=== PATIENT | female | born 2000 | race Caucasian/White ===

== ENCOUNTER → 2020-10-17 | Day surgery (SDC) | payer BC ==
[~2020-10-17] VITALS: Ht 170.2 cm; Wt 104.3 kg
[~2020-10-17] MED LIST: IBUPROFEN 800800 M1 PO; IBUPROFEN200 MG PO; ZOLOFT25 MG PO
[2020-10-17 11:05] VITALS: BP 143/78
[2020-10-17 14:50] VITALS: BP 143/78
--- NOTE | 2020-10-17 16:04 | O ---
[facility] [place] [address] OPERATIVE REPORT Name: AILYN STEIN Room #: REG [facility].#: [id number] Admission: 10/17/20 Attend Phys: Mauro Gonsalez MD Discharge: Date of : 89 Report #: [id number] THIS REPORT FOR: cc: Josi Urban MD,Braxton Gonsalez,Mauro Huertas MD ~ DATE OF SERVICE: 10/17/2020 SERVICE: Orthopedics. FACILITY: [facility]. SURGEON: Mauro Gonsalez MD [employer] OPERATOR: Michelle Araujo NP PREOPERATIVE DIAGNOSES: 1. Left knee pain. 2. Left knee plica syndrome. POSTOPERATIVE DIAGNOSES: 1. Left knee pain. 2. Left knee plica syndrome. 3. Left knee synovitis. 4. Left knee, small inner rim lateral meniscus tear. PROCEDURES: 1. Left knee arthroscopy with plica excision and synovectomy. 2. Left knee partial lateral meniscectomy. COMPLICATIONS: None. DRAINS: None. SPECIMENS: None. ANESTHESIA: General. FINDINGS: 1. Two parallel bands medial plica extending over the medial femoral condyle where there was superficial fissuring and a thin flap tear of the articular cartilage at the medial femoral condyle anterior corner. This was treated with plica excision and limited chondroplasty. This was a superficial chondral lesion and there were no unstable segments otherwise. 2. Synovitis along the PCL and extending back to the posterior horn of the medial meniscus, treated with partial synovectomy. [facility] [address] [place] [address] OPERATIVE REPORT Name: AILYN STEIN Room #: REG [facility]#: [id number] Admission: 10/17/20 Attend Phys: Mauro Gonsalez MD Discharge: Date of : [birth year] Report #: [id number] 3. Intact medial compartment. ACL and PCL otherwise. 4. A small inner rim lateral meniscus tear, treated with inner rim partial lateral meniscectomy. Approximately 5% meniscal volume resected. HISTORY: The patient is a 20-year-old female who is very active and has persistent and progressive left knee pain that had failed rest, activity modifications, physical therapy, multiple injections, and modalities. She had been seen at another facility and presented with a diagnosis of suspected medial plica syndrome. I evaluated her and agreed with that impression and since she had failed conservative measures, she wished to move forward with a definitive surgical treatment. Risks, benefits, alternatives, and indication of surgery discussed with her in detail. Risks include but not limited to pain, bleeding, infection, injury to nerves or blood vessels, persistent pain despite surgical intervention, progression of preexisting chondral injury, stiffness, need for further surgery as well as complications related to anesthesia. Despite the risks, she wished to proceed. PROCEDURE IN DETAIL: After left lower extremity was correctly identified in the preoperative holding area as the operative extremity, the patient was taken to the operating room where general anesthesia was induced without complications. She was padded appropriately. Prophylactic antibiotics were administered in appropriate time. Tourniquet was applied. The left leg was then prepped and draped in standard sterile fashion. Timeout procedure was performed. Esmarch was utilized. Tourniquet inflated to 300 mmHg. Standard anterolateral viewing portal was established followed by anteromedial working portal. Patellofemoral joint was normal with some mild lateral patellar tracking. There were no loose bodies. The medial aspect of the joint was then evaluated and the 2 parallel running plica bands were visualized. I placed the anteromedial portal and then cut the more midline portion of the plica with a biter and then resected the remnant with a shaver. These corresponded to an area where there was a direct abrasion chondromalacia on the anteromedial corner of the medial femoral condyle. There was a thin flap of articular cartilage that appeared to be the result of these plicas. This was treated with a chondroplasty. The remaining portion of the trochlea and anterior aspect of the femur was normal. The scope was placed in the medial compartment, the medial meniscus was normal. There was a thickened and hypertrophic synovium extending over the PCL and then straight back towards the medial meniscal horn. This appeared to be space occupying and could be a source of pain as well, so we used a shaver to perform a synovectomy from the anterior aspect of the PCL along the notch and then through the notch back to the posterior horn and then resected the synovitis here as well. There was no posterior horn medial meniscus tear. The scope was then placed in the lateral compartment and articular cartilage was normal. There was a very small flap tear of the inner rim of the lateral meniscus. I felt that there is a possibility that this could then propagate [address] [address] OPERATIVE REPORT Name: AILYN STEIN Room #: REG [facility]#: [id number] Admission: 10/17/20 Attend Phys: Mauro Gonsalez MD Discharge: Date of : 98 Report #: [id number] into a larger flap tear, so a biter was used to perform a very minimal inner rim resection and then the shaver was used to complete the contouring 5% or less of the meniscal volume was resected. The synovectomy was then completed, the arthroscopic effusion was drained. Instruments were removed. Portal sites were closed. Sterile dressing was applied. The patient was awakened from anesthesia and taken to recovery room in stable condition. No complications. All counts were correct. <ELECTRONICALLY SIGNED> By: Mauro Gonsalez MD 10/17/20 1604 [id number] Mauro Gonsalez MD /nt
== END | disposition home or self-care (01) ==
LOC: OR 07:23
PROVIDERS: ATTEND Orthopaedic Surgery Sports Medicine
DX: M25.562 Pain in left knee (principal); S83.282A Other tear of lateral meniscus, current injury, left knee, initial encounter; M67.52 Plica syndrome, left knee; M65.862 Other synovitis and tenosynovitis, left lower leg; F41.9 Anxiety disorder, unspecified; Z20.822 Contact with and (suspected) exposure to COVID-19; Z98.890 Other specified postprocedural states; X58.XXXA Exposure to other specified factors, initial encounter; Y93.89 Activity, other specified; Y92.89 Other specified places as the place of occurrence of the external cause; Y99.8 Other external cause status
CPT/HCPCS: 50010; 50101; 50405; 56527; 57103; 57181; 58589; 58680; 62110; 62900; 70005